=== PATIENT | female | born 2000 | race Caucasian/White ===

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

== ENCOUNTER 2021-02-17 08:33 | Day surgery (SDC) | payer BC ==
--- NOTE | 2021-02-17 09:00 | PCM.PREANE ---
Preanesthetic Assessment - Procedure Proposed Procedure: EGD/Colonoscopy - Anesthesia/Transfusion/Family Hx Anesthesia History: Prior Anesthesia Without Reaction (sedation for stitches in the ER as a child) Family History of Anesthesia Reaction: No Transfusion History: No Prior Transfusion(s) - Review of Systems General: No Symptoms Pulmonary: No Symptoms Cardiovascular: No Symptoms Gastrointestinal: No Symptoms Neurological: No Symptoms Other: Reports: None - Physical Assessment NPO Status Date: 02/16/21 NPO Status Time: 00:00 Height: 1.6 m Weight: 101.06 kg ASA Class: 2 Mental Status: Alert & Oriented x3 Airway Class: Mallampati = 1 Dentition: Reports: Normal Dentition Thyro-Mental Finger Breadths: 3 Mouth Opening Finger Breadths: 3 ROM/Head Extension: Full Lungs: Clear to Auscultation, Normal Respiratory Effort Cardiovascular: Regular Rate, Regular Rhythm - Allergies Allergies/Adverse Reactions: Allergies Allergy/AdvReac Type Severity Reaction Status Date / Time amoxicillin Allergy Rash Verified 02/16/21 14:28 Penicillins Allergy Rash Verified 02/16/21 14:28 - Blood Blood Available: No Product(s) Available: None - Anesthesia Plan Pre-Op Medication Ordered: None - Acknowledgements Anesthesia Type Planned: MAC Pt an Appropriate Candidate for the Planned Anesthesia: Yes Alternatives and Risks of Anesthesia Discussed w Pt/Guardian: Yes Pt/Guardian Understands and Agrees with Anesthesia Plan: Yes PreAnesthesia Questionnaire HEENT History: Reports: Impaired Vision Cardiovascular History: Reports: High Cholesterol Respiratory History: Reports: None Gastrointestinal History: Reports: Chronic Constipation, GERD, Irritable Bowel Syndrome Genitourinary History: Reports: None CLIN TECH History: Reports: Other (See Below) Other OB/BYN History: dysmenorrhea, PCOS Musculoskeletal History: Reports: Other (See Below) Other Musculoskeletal History: bilateral hand trigger fingers Neurological History: Reports: None Psychiatric History: Reports: Anxiety, Depression, Panic Attack Endocrine/Metabolic History: Reports: None Hematologic History: Reports: None Immunologic History: Reports: None Oncologic (Cancer) History: Reports: None Dermatologic History: Reports: Other (See Below) Other Dermatologic History: stiches recieved at approximately 4 years old - Infectious Disease History Infectious Disease History: Reports: None - Past Surgical History Head Surgeries/Procedures: Reports: None Cardiovascular Surgical History: Reports: None Respiratory Surgical History: Reports: None GI Surgical History: Reports: None Female Surgical History: Reports: None Male Surgical History: Reports: None Endocrine Surgical History: Reports: None Neurological Surgical History: Reports: None Musculoskeletal Surgical History: Reports: None Oncologic Surgical History: Reports: None Dermatological Surgical History: Reports: None - SUBSTANCE USE Tobacco Use Status *Q: Never Tobacco User Tobacco Use Within Last Twelve Months: No Second Hand Smoke Exposure: No Days Per Week of Alcohol Use: 0 Number of Drinks Per Day: 0 Total Drinks Per Week: 0 Recreational Drug Use History: No - HOME MEDS Home Medications: Home Meds Psyllium [Metamucil] 0.52 gm PO DAILY 02/16/21 [History] Sertraline HCl [Zoloft] 100 mg PO DAILY 02/16/21 [History] hydrOXYzine HCL [hydrOXYzine] 12.5 - 25 mg PO QID PRN 02/16/21 [History] - CURRENT (IN HOUSE) MEDS Current Meds: Current Medications Lactated Ringer's (Ringers, Lactated) 1,000 mls @ 125 mls/hr IV ASDIRECTED SONU Stop: 02/17/21 23:00 Lidocaine/Sodium Bicarbonate (Lidocaine 1%/Sod Bicarbonate In Ns 8.4% 1 Ml Syringe) 0.25 ml IDERM ONETIME PRN PRN Reason: Prior to IV Start Stop: 02/17/21 18:00 Sodium Chloride (Sodium Chloride 0.9% 10 Ml Syringe) 10 ml FLUSH ASDIRECTED PRN PRN Reason: Keep Vein Open Stop: 02/17/21 16:00
[2021-02-17] MEDS ORDERED: Propofol 200 MG/20 ML SDV ONE ×3 (09:23→09:42)
[2021-02-17] MEDS ORDERED: Midazolam 1 MG/ML 2 ML SDV ONE (09:24)
[2021-02-17] MEDS ORDERED: fentaNYL 100 MCG/2 ML SDV ONE (09:24)
[2021-02-17] MEDS ORDERED: Lidocaine 1% 4 ML ONE (09:27)
--- NOTE | 2021-02-17 10:20 | PCM.OPNOTE ---
- General Post-Op/Procedure Note Date of Surgery/Procedure: 02/17/21 Operative Procedure(s): EGD and colonoscopy Findings: 1. Irregular z-line 2. Gastric polyp (fundus) 3. Gastritis 4. Duodenitis 5. Colitis 6. colon petechiae Pre Op Diagnosis: abdominal pain, diarrhea Post-Op Diagnosis: same Anesthesia Technique: COLEEN Primary Surgeon: Jessie Velásquez Anesthesia Provider: Jl Morse Pathology: 1. Z-line biopsies 2. gastric fundus polyp 3. gastric antrum biopsies 4. duodenal biopsies 5. Ascending, transverse, descending and sigmoid colon biopsies Fluid Replacement, Intraop: 1,000 Output, Urine Amount: 0 EBL in mLs: 0 Complications: none apparent Condition: Good
--- NOTE | 2021-02-17 10:39 | PCM.PRNOTE ---
- Free Text/Narrative Note: Operative Report Date of Procedure: February 17, 2021 Pre Op Diagnosis: abdominal pain and diarrhea Post-Op Diagnosis: same Operative Procedures: 1. EGD with biopsy 2. Colonoscopy to the cecum with biopsy Primary Surgeon: Jessie Velásquez MD Anesthesia Provider: Jl Morse CRNA Anesthesia Technique: MAC IV Fluid Replacement, Intraop: 1000cc crystalloid Output, Urine Amount: 0cc EBL in mLs: 0cc Findings: 1. Irregular z-line 2. Gastric polyp (fundus) 3. Gastritis 4. Duodenitis 5. Colitis 6. colon petechiae Specimens: 1. Z-line biopsies 2. gastric fundus polyp 3. gastric antrum biopsies 4. duodenal biopsies 5. Ascending, transverse, descending and sigmoid colon biopsies Drain/Tubes: None Indication: The patient is a 20-year-old female who presented to the clinic. The patient reported symptoms of abdominal pain and diarrhea. The patient was consented for a diagnostic EGD and colonoscopy. Risks of bleeding, and perforation were discussed, and the patient agreed to the risks and wished to proceed. Description of the procedure: The patient was taken back to the endoscopy suite, and placed in the left lateral decubitus position. A bite block was placed. The patient was sedated with MAC anesthesia. The Olympus video endoscope was inserted into the oropharynx and guided under direct vision into the esophagus, stomach, and duodenum. The duodenal bulb and second portion of the duodenum were biopsied with a cold biopsy forceps for celiac testing. There was patchy friability noted in the bulb of the duodenum. The gastric antrum was inspected and cold biopsy forceps were used to take tissue samples for H. pylori. There was a small erosion noted in this area. There was also scattered erythema consistent with gastritis the scope was withdrawn to the stomach and retroflexed. There was no increased fluid, food or secretions in the upper gastrointestinal tract. The scope was withdrawn to the esophagus. A this point we noted an irregular Z-line, this had an appearance most consistent with esophagitis. This was biopsied in 4 quadrants using a cold biopsy forceps. The endoscope was then withdrawn Next, anorectal examination was performed. No lesions, masses or hemorrhoids were noted externally or on palpation. The scope was placed into the rectum and advanced to cecum. Upon reaching the cecum, and the patients cecum was entered. There was mild tortuosity of the colon. The ileocecal valve was well visualized and the appendiceal orifice identified. At this point, the scope was slowly withdrawn, paying attention to the mucosa. The patient had good bowel prep, 95% of the mucosa was visible. Scattered petechiae were noted throughout the colon. Additionally there were some small ulcers noted in the left side of the colon. Biopsies were taken throughout the colon in the ascending, transverse, descending and sigmoid colon areas. In the rectum, scope was retroflexed and some hemorrhoidal tissue was noted. The scope was placed back in the lumen and excess air was aspirated. The scope was removed. The patient tolerated the procedure very well. Complications: None apparent Condition: The patient was transported to PACU in stable condition. Jessie Velásquez MD General Surgery
== END 2021-02-17 11:04 | disposition home or self-care (01) ==
LOC: JD.SDS 08:33
PROVIDERS: ATTEND Surgery
DX: K52.9 Noninfective gastroenteritis and colitis, unspecified (principal); K22.89 Other specified disease of esophagus; K31.7 Polyp of stomach and duodenum; K29.50 Unspecified chronic gastritis without bleeding; K29.80 Duodenitis without bleeding; R23.3 Spontaneous ecchymoses; K25.9 Gastric ulcer, unspecified as acute or chronic, without hemorrhage or perforation; K63.3 Ulcer of intestine; K64.9 Unspecified hemorrhoids; K31.89 Other diseases of stomach and duodenum; E75.5 Other lipid storage disorders; K21.9 Gastro-esophageal reflux disease without esophagitis; F32.9 Major depressive disorder, single episode, unspecified; Z79.899 Other long term (current) drug therapy; Z88.0 Allergy status to penicillin; Z88.1 Allergy status to other antibiotic agents
CPT/HCPCS: 43239; 45380; 83630; 87045; 87046; 87328; 87329; 87493; 87899; J2250; J2704; J3010; J7120; 00813

== ENCOUNTER 2021-09-21 14:39 | Emergency (ER) | payer BC ==
[2021-09-21] MEDS ORDERED: Ondansetron 4 MG/2 ML SDV IVPUSH ONE (16:20)
[2021-09-21] MEDS ORDERED: Sodium Chloride 0.9% 10 ML Syringe FLUSH PRN (16:20)
[2021-09-21] MEDS ORDERED: HYDROmorphone 0.5 MG/0.5 ML Syringe IVPUSH ONE ×2 (16:30→18:55)
[2021-09-21] MEDS ORDERED: Sodium Chloride 0.9% 1,000 ML IV SCH (16:30)
[2021-09-21 18:15] LABS: ESTIMATED GFR > 60 mL/min (>60)
[2021-09-21] MEDS ORDERED: Metoclopramide 10 MG/2 ML SDV IVPUSH ONE (18:59)
== END 2021-09-21 19:58 | disposition home or self-care (01) ==
LOC: JD.ED 14:39
DX: U07.1 COVID-19 (principal); R11.2 Nausea with vomiting, unspecified; R19.7 Diarrhea, unspecified; Z88.0 Allergy status to penicillin
CPT/HCPCS: 36415; 80053; 85025; 86140; 87635; 96361; 96374; 96375; 96376; 99284; J1170; J2405; J2765; J3490; J7030; U0002

== ENCOUNTER 2023-02-27 23:24 | Emergency (ER) | payer BC | END 2023-02-28 00:50 | disposition home or self-care (01) | LOC: JD.ED 23:24 | DX: K59.00 Constipation, unspecified (principal); Z79.899 Other long term (current) drug therapy; Z88.0 Allergy status to penicillin; Z88.1 Allergy status to other antibiotic agents | CPT/HCPCS: 99283 ==

== ENCOUNTER → 2025-03-12 | Day surgery (SDC) | payer BC ==
[~2025-03-12] MED LIST changes: -Lactated Ringers 1,000 ML IV SCH; -Lidocaine 1%/Sod Bicarbonate in NS 8.4% 1 ML Syringe IDERM PRN; +Sodium Chloride 0.9% 10 ML Syringe FLUSH SCH; +propofoL 500 MG/50 ML 50 ML ONE
[2025-03-12] MEDS: Lactated Ringers 1,000 ML IV SCH (09:15)
== END | disposition home or self-care (01) ==
LOC: JD.SDS 08:35
PROVIDERS: ATTEND Surgery
DX: K62.5 Hemorrhage of anus and rectum (principal); E66.813 Obesity, class 3; Z88.0 Allergy status to penicillin; Z88.1 Allergy status to other antibiotic agents; Z68.42 Body mass index [BMI] 45.0-49.9, adult; Z79.899 Other long term (current) drug therapy
CPT/HCPCS: 45380; J2003; J2704; J7120; 00811